=== PATIENT | female | born 1950 | race Asian ===

== ENCOUNTER 2019-06-13 07:46 | Emergency (ER) | payer MEDICARE, OTHER ==
[2019-06-13] MEDS ORDERED: DECADRON IV ONE (09:22)
[2019-06-13] MEDS ORDERED: REGLAN PO ONE (09:22)
--- NOTE | 2019-06-13 09:23 | Emergency Department Report ---
ED Allergic Reaction HPI - General Chief complaint: Allergic Reaction Stated complaint: INSECT BITE/FACE SWOLLEN Time Seen by Provider: 06/13/19 08:56 Source: patient Mode of arrival: Ambulatory Limitations: No Limitations - History of Present Illness Initial Comments: Says a 68-year-old female that presents to the emergency room with right-sided facial swelling since yesterday. Patient states she was in the park yesterday and felt something bite her right side of her for here. Patient states initially she felt fine but by the time she left the park she noticed now swelling around the right eye. When she returned home she applied ice to the area which improved swelling. Patient states she woke up this morning she noticed swelling around the right eye and right before here. Patient states it feels tight and is if it is spreading to the left side. She denies visual changes, difficulty swallowing, drooling, or pain. MD Complaint: allergic reaction, facial swelling Onset/Timin -: days(s) Exposure: insect bite Symptoms: itching, facial swelling. denies: rash, lip swelling, difficulty swallowing, difficulty breathing, orolingual swelling, hoarseness, syncopy, dizziness, nausea, vomiting, abdominal pain Severity: moderate Treatment Prior to Arrival: ice Previous Allergy History: prior ED visit(s) (Once with similar symptoms after bee sting) - Related Data Previous Rx's Medication Instructions Recorded Last Taken Type Metoclopramide [Reglan] 10 mg PO ACHS #10 tablet 06/13/19 Unknown Rx methylPREDNISolone [Medrol 4MG 4 mg PO DAILY #1 tab.ds.pk 06/13/19 Unknown Rx DOSEPAK (21 tabs)] Allergies Allergy/AdvReac Type Severity Reaction Status Date / Time Penicillins Allergy Hives Verified 06/13/19 08:01 ED Review of Systems ROS: Stated complaint: INSECT BITE/FACE SWOLLEN Other details as noted in HPI Constitutional: denies: chills, fever Eyes: denies: eye pain, eye discharge, vision change ENT: denies: ear pain, throat pain Respiratory: denies: cough, shortness of breath, wheezing Cardiovascular: denies: chest pain, palpitations Gastrointestinal: denies: abdominal pain, nausea, diarrhea Skin: other (right-sided facial swelling from right forehead to right maxillary). denies: rash, lesions Neurological: denies: headache, weakness, paresthesias Psychiatric: denies: anxiety, depression ED Past Medical Hx - Past Medical History Previous Medical History?: No - Surgical History Past Surgical History?: No - Social History Smoking Status: Never Smoker Substance Use Type: None - Medications Home Medications: Home Medications Medication Instructions Recorded Confirmed Last Taken Type Metoclopramide [Reglan] 10 mg PO ACHS #10 tablet 06/13/19 Unknown Rx methylPREDNISolone [Medrol 4MG 4 mg PO DAILY #1 tab.ds.pk 06/13/19 Unknown Rx DOSEPAK (21 tabs)] ED Physical Exam - General Limitations: No Limitations General appearance: alert, in no apparent distress - Eye Eye exam: Present: PERRL, EOMI, periorbital swelling (right). Absent: scleral icterus, conjunctival injection, nystagmus, periorbital tenderness Pupils: Present: normal accommodation - ENT ENT exam: Present: normal orophraynx (uvula midline), mucous membranes moist - Neck Neck exam: Present: normal inspection. Absent: lymphadenopathy - Respiratory Respiratory exam: Present: normal lung sounds bilaterally. Absent: respiratory distress - Cardiovascular Cardiovascular Exam: Present: regular rate, normal rhythm. Absent: systolic murmur, diastolic murmur, rubs, gallop - GI/Abdominal GI/Abdominal exam: Present: soft, normal bowel sounds. Absent: distended, tenderness, guarding, rebound, rigid - Neurological Exam Neurological exam: Present: alert, oriented X3 - Psychiatric Psychiatric exam: Present: normal affect, normal mood - Skin Skin exam: Present: warm, dry, intact, normal color. Absent: rash ED Course Vital Signs 06/13/19 06/13/19 08:00 09:42 Temperature 97.5 F L Pulse Rate 75 59 L Respiratory 16 16 Rate Blood Pressure 162/101 125/56 [Left] O2 Sat by Pulse 99 97 Oximetry ED Medical Decision Making - Medical Decision Making Patient was examined by me. Patient is nontoxic appearing and stable. Vitals are normal. There is periorbital swelling on right eye. Given Reglan and dexamethasone 8 mg IM. Vision is intact and patient denies difficulty swallowing and no signs of angioedema. Physical findings susceptible of allergic reaction. Start medrol dose pack and reglan. Follow up with PCP with worsening symptoms. Patient discharged home in stable condition. Critical care attestation.: If time is entered above; I have spent that time in minutes in the direct care of this critically ill patient, excluding procedure time. ED Disposition Clinical Impression: Allergic reaction to insect bite Insect bite Qualifiers: Encounter type: initial encounter Site of insect bite: head Site of insect bite of head: other part Qualified Code(s): S00.96XA - Insect bite (nonvenomous) of unspecified part of head, initial encounter; W57.XXXA - Bitten or stung by nonvenomous insect and other nonvenomous arthropods, initial encounter Disposition: DC- TO HOME OR SELFCARE Is pt being admited?: No Does the pt Need Aspirin: No Condition: Stable Instructions: Insect Bite or Sting (ED), Allergies (ED) Prescriptions: methylPREDNISolone [Medrol 4MG DOSEPAK (21 tabs)] 4 mg PO DAILY #1 tab.ds.pk Metoclopramide [Reglan] 10 mg PO ACHS #10 tablet Referrals: LIAM FOUNTAIN MD [Primary Care Provider] - 3-5 Days Time of Disposition: 10:37
[2019-06-13] MEDS ORDERED: DECADRON ONE (09:32)
[2019-06-13] MEDS ORDERED: REGLAN ONE (09:33)
[2019-06-13 09:43] VITALS: BP 125/56
== END 2019-06-13 10:54 | disposition home or self-care (01) ==
LOC: ED 07:46
DX: S00.96XA Insect bite (nonvenomous) of unspecified part of head, initial encounter (principal); T63.481A Toxic effect of venom of other arthropod, accidental (unintentional), initial encounter; S00.86XA Insect bite (nonvenomous) of other part of head, initial encounter; W57.XXXA Bitten or stung by nonvenomous insect and other nonvenomous arthropods, initial encounter; Y93.89 Activity, other specified; Y92.830 Public park as the place of occurrence of the external cause; Y99.8 Other external cause status
CPT/HCPCS: 96374; 99282; J1100